=== PATIENT | female | born 1950 | race Caucasian/White ===

== ENCOUNTER 2021-01-17 12:03 | Inpatient (IN) | payer MEDICAID ==
[~2021-01-17] VITALS: Ht 157.5 cm; Wt 81.8 kg
[2021-01-17] MEDS ORDERED: BENA20TA9 PO (15:17)
[2021-01-17] MEDS ORDERED: LEVO200T8 PO (15:17)
[2021-01-17] MEDS ORDERED: IOHEXOL-350 100 ML VIAL IV ONE (16:07)
[2021-01-17] MEDS ORDERED: IV NS 0.9% 250 ML IV ONE (16:08)
[2021-01-17] MEDS ORDERED: CT SWABBABLE VALVE TRANS SET 1 EA INFUS.SET MC ONE (16:08)
[2021-01-17] MEDS ORDERED: METOPROLOL TARTRATE INJ 5 MG/5 ML AMPUL ONE ×2 (16:08→18:44)
[2021-01-17] MEDS ORDERED: NITROGLYCERIN 0.4 MG/TAB BOTTLE ONE (18:35)
--- NOTE | 2021-01-17 19:20 | NUR ---
PATIENT CTA COMPLETED WITHOUT ANY ADVERSE REACTIONS. VITAL SIGNS STABLE UPON TRANSFER. AMBULATORY AT BEDSIDE. DENIES DIZZINESS. REPORT GIVEN TO MATTY DAMON.
[2021-01-17] MEDS ORDERED: MAGNESIUM HYDROXIDE 30 ML UDC PO PRN (19:30)
[2021-01-17] MEDS ORDERED: Z GUARD REMEDY 2 OZ OINT TP PRN (19:30)
[2021-01-17] MEDS ORDERED: HYDROCODONE/APAP 5/325MG TABLET PO PRN (19:30)
[2021-01-17] MEDS ORDERED: ACETAMINOPHEN 325 MG TABLET PO PRN (19:30)
[2021-01-17] MEDS ORDERED: ZOLPIDEM TARTRATE 5 MG TABLET PO PRN (19:30)
[2021-01-17] MEDS ORDERED: ONDANSETRON HCL/PF 4 MG/2 ML VIAL IVP PRN (19:30)
[2021-01-17 19:40] VITALS: BP 145/71
--- NOTE | 2021-01-17 19:40 | NUR ---
ANIMAL NURSEGRAPHIC ART SALES REPRESENTATIVE NOTE PATIENT ARRIVED TO UNIT, ALERT AND ORIENTED X 4. PATIENT ON ROOM AIR, NO SIGNS OF DISTRESS OR SHORTNESS OF BREATH NOTED. PATIENT ABLE TO MAKE NEEDS KNOWN. NO COMPLAINTS OF PAIN AT THIS TIME, NO CHEST PAIN, NO HEART PALPITATIONS AT THIS TIME. PATIENT AMBULATORY AND STEADY, PATIENT HAS BRP. PATIENT ON TELE, SINUS BRAD, HR 57. PATIENT ORIENTED TO ROOM AND HOW TO USE CALL LIGHT. SAFETY MEASURES IN PLACE, CALL LIGHT WITHIN REACH, BED LOCKED IN LOWEST POSITION, SIDE RAILS UP X 2. WILL CONTINUE PLAN OF CARE AND CONTINUE TO MONITOR
[2021-01-17] MEDS ORDERED: ATORVASTATIN 40 MG TABLET PO SCH (22:00)
[2021-01-17] MEDS: ENOXAPARIN SODIUM 80 MG/0.8 ML DISP.SYRIN SQ SCH (22:25)
[2021-01-18] VITALS: BP 122/70
[2021-01-18] MEDS ORDERED: DEXTROSE 50%-WATER 50 ML DISP.SYRIN IV PRN (01:30)
[2021-01-18] MEDS ORDERED: INSULIN REGULAR, HUMAN 100 UNIT/ML 3 ML VIAL SQ PRN (01:30)
[2021-01-18 05:22] VITALS: BP 106/68
[2021-01-18 06:41] LABS: BASOPHILS % (AUTO) 0.5 % (0.0-2.0); EOSINOPHILS % (AUTO) 1.1 % (0.0-6.0); HEMATOCRIT 40 % (33-45); HEMOGLOBIN 13.6 g/dL (11.5-14.8); LYMPHOCYTES # (AUTO) 2.2 /CMM (0.8-4.8); LYMPHOCYTES % (AUTO) 24.3 % (20.0-44.0); MEAN CORPUSCULAR HGB CONC 34 g/dl (31.0-36.0); MEAN CORPUSCULAR VOLUME 89 fL (82-100); MONOCYTES # (AUTO) 0.9 /CMM (0.1-1.30); MONOCYTES % (AUTO) 9.6 % (2.0-12.0); NEUTROPHILS # (AUTO) 5.9 /CMM (1.8-8.9); NEUTROPHILS % (AUTO) 64.5 % (43.0-81.0); PLATELET COUNT (AUTO) 235 /CMM (150-450); WHITE BLOOD COUNT (AUTO) 9.1 K/uL (4.3-11.0)
--- NOTE | 2021-01-18 07:00 | NUR ---
MS RN CLOSING NOTE PATIENT ALERT AND ORIENTED X 4. PATIENT ON ROOM AIR, NO SIGNS OF DISTRESS OR SHORTNESS OF BREATH NOTED. NO COMPLAINTS OF PAIN AT THIS TIME, NO CHEST PAIN, NO HEART PALPITATIONS AT THIS TIME. LEFT HAND IV ACCESS INTACT, SALINE LOCKED. SAFETY MEASURES IN PLACE, CALL LIGHT WITHIN REACH, BED LOCKED IN LOWEST POSITION, SIDE RAILS UP X 2. WILL ENDORSE TO HEATING REPAIR TECHNICIAN NURSE FOR CONTINUITY OF CARE
--- NOTE | 2021-01-18 07:18 | NUR ---
MANAGER HAIR NOTES PATIENT IN BED ALERT ORIENTED X 4. NO ACUTE DISTRESS NOTED. BREATHING UNLABORED. DENIED ANY PAIN AT THIS TIME . IV ACCESS PATENT AND INTACT, NO REDNESS, NO SWELLING NOTED. SAFETY MEASURES IN PLACE, CALL LIGHT WITHIN REACH. WILL CONTINUE TO MONITOR ACCORDINGLY.
[2021-01-18] MEDS ORDERED: LEVOTHYROXINE SODIUM 100 MCG TABLET PO SCH (07:30)
[2021-01-18] MEDS: BLOOD SUGAR DIAGNOSTIC 1 EACH STRIP IN SCH ×2 (07:45→12:00)
--- NOTE | 2021-01-18 08:10 | NUR ---
WAITER/WAITRESS CAFETERIA NOTES DR LACI CASTANEDA MADE AWARE OF TROPONIN 0.587, NO NEW ORDER MADE AT THIS TIME.
[2021-01-18 08:45] LABS: CALCIUM, SERUM 8.7 mg/dL (8.5-10.1); CREATININE 0.8 mg/dL (0.6-1.3); POTASSIUM 3.9 mmol/L (3.5-5.1)
[2021-01-18] MEDS ORDERED: ASPIRIN 81 MG TAB.CHEW PO SCH (09:00)
[2021-01-18] MEDS ORDERED: BENAZEPRIL HCL 20 MG TABLET PO SCH (09:00)
--- NOTE | 2021-01-18 09:19 | NUR ---
CHEMICALS FERMENTATION OPERATOR NOTES RECEIVED NEW ORDER FROM DR LACI CASTANEDA TO CHANGE DIET TO 2 GRAM SODIUM STANDARD CARBOHYDRATES 60GM, ORDER CLARIFIED AND READ BACK WITH MD , NOTED AND CARRIED OUT.
--- NOTE | 2021-01-18 09:27 | NUR ---
SALES RECRUITMENT SPECIALIST NOTES PATIENT NPO EARLIER, ADMINISTERED MEDICATION BEFORE EATING BREAKFAST
--- NOTE | 2021-01-18 09:35 | NUR ---
HACK DRIVER NOTES CLARIFIED ORDER FROM DR LACI CASTANEDA TO CHANGE DIET TO 2 GRAM SODIUM , ORDER CLARIFIED AND READ BACK WITH MD , NOTED AND CARRIED OUT.
[2021-01-18 09:54] VITALS: BP 126/73
[2021-01-18] MEDS: ENOXAPARIN SODIUM 80 MG/0.8 ML DISP.SYRIN SQ SCH (09:55)
--- NOTE | 2021-01-18 12:04 | NUR ---
MS RN NOTES PATIENT REFUSED ACCU CHECK DESPITE OF EXPLANATION OF RISKS AND BENEFITS.
[2021-01-18] MEDS ORDERED: ATOR40TA PO (13:34)
[2021-01-18] MEDS ORDERED: ASPI-1169 PO (13:34)
--- NOTE | 2021-01-18 15:33 | NUR ---
BROACH GRINDEREXECUTIVE BUSINESS COACH NOTES PATIENT DISCHARGE HOME WITH STABLE VITAL SIGNS, ALERT ORIENTED X 4. NO ACUTE DISTRESS NOTED, BREATHING UNLABORED. DENIED ANY PAIN. DISCHARGE INSTRUCTIONS GIVEN TO THE PATIENT INCLUDING FOLLOW UP WITH PRIMARY DOCTOR AND SHAMAR HINOJOSA IN 1 WEEK AND NEW PRESCRIPTION, VERBALIZED UNDERSTANDING. IV ACCESS REMOVED, NO REDNESS, NO SWELLING, NO BLEEDING NOTED. ALL BELONGINGS ACCOUNTED FOR. SKIN IS INTACT. ASSISTED TO THE LOBBY PICKED UP VIA PRIVATE CAR ACCOMPANIED BY DAUGHTER IN STABLE CONDITION.
== END 2021-01-18 15:35 | disposition home or self-care (01) | DRG 201 ==
LOC: TELE 12:21 → MED 01-18 11:46
PROVIDERS: ADMIT Nurse Practitioner Acute Care; ATTEND Nurse Practitioner Acute Care
DX: I49.9 Cardiac arrhythmia, unspecified (principal); I21.A1 Myocardial infarction type 2; D68.59 Other primary thrombophilia; E03.9 Hypothyroidism, unspecified; E78.00 Pure hypercholesterolemia, unspecified; E78.5 Hyperlipidemia, unspecified; I10 Essential (primary) hypertension; E66.9 Obesity, unspecified; Z79.890 Hormone replacement therapy; Z79.899 Other long term (current) drug therapy; R73.9 Hyperglycemia, unspecified; Z79.82 Long term (current) use of aspirin
CPT/HCPCS: 36415; 75574; 80048-TC; 82962-TC; 83735-TC; 84100-TC; 84484-TC; 85025-TC; 87081-TC; G0378; J1650; J1815; J3490; J7050; Q9967